=== PATIENT | female | born 2000 | race Caucasian/White ===

== ENCOUNTER 2020-08-31 23:40 | Emergency (ER) | payer SELFPAY ==
[~2020-08-31] VITALS: Ht 175.3 cm; Wt 67.1 kg
[2020-08-31 23:49] VITALS: Ht 175.3 cm; Wt 67.1 kg
[2020-09-01 00:28] LABS: CALCIUM 9.6 mg/dL (8.5-10.1); CARBON DIOXIDE 30.3 mmol/L (21-32); CHLORIDE SERUM 104 mmol/L (98-107); CREATININE SERUM 0.8 mg/dL (0.6-1.0); GFR1 > 60 mL/min; GLUCOSE SERUM 105 mg/dL (74-106); POTASSIUM SERUM 3.5 mmol/L (3.5-5.1); SODIUM SERUM 142 mmol/L (136-145)
[2020-09-01 00:33] LABS: ALBUMIN 4.2 g/dL (3.4-5.0); ALKALINE PHOSPHATASE 96 U/L (46-116); ALT/SGPT 31 U/L (14-59); AST/SGOT 23 U/L (15-37); BILIRUBIN TOTAL 0.3 mg/dL (0.20-1.00); TOTAL PROTEIN, SERUM 7.6 g/dL (6.4-8.2)
[2020-09-01 00:37] LABS: BASOPHIL % 1.2 % (0.2-1.3); PLATELET COUNT 297 x10^3mcL (179-408); RED CELL DISTRIBUTION WIDTH 12.6 % (12.3-17.7)
[2020-09-01] MEDS ORDERED: KEF500 PO (03:45)
[2020-09-01] MEDS ORDERED: CYCLOBENZAPRINE5 MG PO (03:45)
[2020-09-01] MEDS ORDERED: MOT600 PO (03:45)
[2020-09-01 03:54] VITALS: BP 115/66
== END 2020-09-01 03:54 | disposition home or self-care (01) ==
LOC: ED 23:40
DX: N39.0 Urinary tract infection, site not specified (principal); R10.32 Left lower quadrant pain
CPT/HCPCS: J1885